=== PATIENT | male | born 1980 | race Caucasian/White ===

== ENCOUNTER 2017-09-27 17:09 | Emergency (ER) | payer OTHER ==
[~2017-09-27] VITALS: Ht 182.9 cm; Wt 89.2 kg
[2017-09-27] MEDS ORDERED: VALIUM5 MG PO (18:40)
[2017-09-27] MEDS ORDERED: NORCO 5/3251 TABLET PO (18:40)
[2017-09-27] MEDS ORDERED: MEDROL DOSEPAK4 MG PO (18:40)
[2017-09-27 19:12] VITALS: BP 132/88
== END 2017-09-27 19:14 | disposition home or self-care (01) ==
LOC: EME 17:09
DX: M54.5 Low back pain (principal); M54.16 Radiculopathy, lumbar region
CPT/HCPCS: 99281; 99283; J7512